=== PATIENT | female | born 1975 | race Hispanic/Latino ===

== ENCOUNTER 2018-11-27 10:06 | Emergency (ER) | payer SELFPAY ==
[2018-11-27] MEDS ORDERED: FLUORESCEIN SODIUM 1 STRIP STRIP ONE (10:23)
== END 2018-11-27 10:47 | disposition home or self-care (01) ==
LOC: EDH 10:06
DX: H10.9 Unspecified conjunctivitis (principal); H40.051 Ocular hypertension, right eye; I10 Essential (primary) hypertension; Z98.51 Tubal ligation status; Z90.49 Acquired absence of other specified parts of digestive tract
CPT/HCPCS: 99282

== ENCOUNTER → 2021-07-13 | Outpatient (CLI) | payer BC, SELFPAY ==
[2021-07-13 09:34] LABS: CREATININE 0.8 mg/dL (0.5-1.5)
== END | disposition home or self-care (01) ==
LOC: LAB 08:17
PROVIDERS: ATTEND Family Medicine
DX: R19.00 Intra-abdominal and pelvic swelling, mass and lump, unspecified site (principal)
CPT/HCPCS: 36415; 82565; 84520

== ENCOUNTER → 2021-07-20 | Outpatient (CLI) | payer BC, OTHER ==
[~2021-07-20] MED LIST: IOHEXOL 350 MG/ML 100ML INFUS..BTL IV ONE
== END ==
LOC: RAH 07:54
PROVIDERS: ATTEND Family Medicine
DX: R19.00 Intra-abdominal and pelvic swelling, mass and lump, unspecified site (principal)
CPT/HCPCS: 74178; Q9967